=== PATIENT | male | born 1950 | race Caucasian/White ===

== ENCOUNTER 2024-05-27 08:55 | Day surgery (SDC) | payer MEDICARE ==
[~2024-05-27] VITALS: Ht 170.2 cm; Wt 90.3 kg
[~2024-05-27 08:55] MED LIST: ATOR40TA75 PO; LISI20TA33 PO; METO1TAB32 PO; PHENYLEPHRINE 10% OPHTH SOL 5ML OS PRN; ZOLO100T PO
[2024-05-27] MEDS ORDERED: MIDAZOLAM INJ 2MG/2ML VIAL As Ordered ONE (09:46)
[2024-05-27] MEDS ORDERED: fentaNYL 100 MCG/2 ML INJECTION As Ordered ONE (09:46)
[2024-05-27] MEDS: OFLOXACIN 0.3 % (OCUFLOX) OPTH SOL 5ML OS ONE (10:00)
[2024-05-27] MEDS: CYCLOPENTOLATE 1% OPHTH SOLN 2ML BTL OS SCH (10:16)
[2024-05-27] MEDS: PHENYLEPHRINE 2.5% OPHTH SOL 2ML OS SCH (10:16)
[2024-05-27] MEDS: LIDOCAINE 3.5 % 1ML OPHTH TOPICAL GEL OU ONE (10:16)
[2024-05-27] MEDS: TROPICAMIDE 1% OPHTH SOLN 15ML OS SCH (10:16)
[2024-05-27] MEDS: BSS IRRIG/VANCO(10MG)/TOBRA(5MG)/EPINEPH(1:1000-0.5CC)500ML BAG-ORONLY As Ordered ONE (10:55)
[2024-05-27] MEDS: LIDOCAINE 1% SDV 5ML VIAL As Ordered ONE (10:55)
[2024-05-27] MEDS: CEFUROXIME 1MG/0.1ML INTRACAMERAL INJ As Ordered ONE (10:55)
[2024-05-27 11:15] VITALS: BP 127/62; TEMP 97.2; O2SAT 96
== END 2024-05-27 11:27 | disposition home or self-care (01) ==
LOC: M SDC 08:55
PROVIDERS: ATTEND Ophthalmology
DX: H25.12 Age-related nuclear cataract, left eye (principal); I10 Essential (primary) hypertension; E78.00 Pure hypercholesterolemia, unspecified; Z79.899 Other long term (current) drug therapy; F41.8 Other specified anxiety disorders; Z87.891 Personal history of nicotine dependence; Z79.82 Long term (current) use of aspirin
CPT/HCPCS: 66984; J0697; J2250; J3010; V2632

== ENCOUNTER → 2024-06-03 | Day surgery (SDC) | payer MEDICARE ==
[~2024-06-03] VITALS: Ht 170.2 cm; Wt 90.1 kg
[~2024-06-03] MED LIST changes: +MIDAZOLAM INJ 2MG/2ML VIAL As Ordered ONE; +PHENYLEPHRINE 10% OPHTH SOL 5ML OD PRN; -PHENYLEPHRINE 10% OPHTH SOL 5ML OS PRN; +fentaNYL 100 MCG/2 ML INJECTION As Ordered ONE
[2024-06-03] MEDS: PHENYLEPHRINE 2.5% OPHTH SOL 2ML OD SCH (06:43)
[2024-06-03] MEDS: OFLOXACIN 0.3 % (OCUFLOX) OPTH SOL 5ML OD ONE (06:43)
[2024-06-03] MEDS: CYCLOPENTOLATE 1% OPHTH SOLN 2ML BTL OD SCH (06:43)
[2024-06-03] MEDS: TROPICAMIDE 1% OPHTH SOLN 15ML OD SCH (06:43)
[2024-06-03] MEDS: LIDOCAINE 3.5 % 1ML OPHTH TOPICAL GEL OU ONE (06:44)
[2024-06-03] MEDS: BSS IRRIG/VANCO(10MG)/TOBRA(5MG)/EPINEPH(1:1000-0.5CC)500ML BAG-ORONLY As Ordered ONE (07:57)
[2024-06-03] MEDS: LIDOCAINE 1% SDV 5ML VIAL As Ordered ONE (07:57)
[2024-06-03] MEDS: CEFUROXIME 1MG/0.1ML INTRACAMERAL INJ As Ordered ONE (07:58)
[2024-06-03 08:23] VITALS: BP 114/75; TEMP 97.8; O2SAT 96
== END | disposition home or self-care (01) ==
LOC: M SDC 05:53
PROVIDERS: ATTEND Ophthalmology
DX: H25.11 Age-related nuclear cataract, right eye (principal); I10 Essential (primary) hypertension; E78.00 Pure hypercholesterolemia, unspecified; F41.8 Other specified anxiety disorders; Z79.899 Other long term (current) drug therapy; Z87.891 Personal history of nicotine dependence; Z90.89 Acquired absence of other organs
CPT/HCPCS: 66984; J0697; J2250; J3010; V2632